=== PATIENT | male | born 1980 | race Caucasian/White ===

== ENCOUNTER 2021-11-02 17:35 | Outpatient (REF) | payer BC, SELFPAY ==
[2021-11-02 20:26] LABS: Hemoglobin A1C 5.8 % (<5.7)
[2021-11-02 20:28] LABS: Calculated LDL 169 mg/dL (<100); Cholesterol 226 mg/dL (<200); HDL Cholesterol 43 mg/dL (40-60); Triglyceride 74 mg/dL (<150)
[2021-11-04 10:05] LABS: HIV-1/2 Ag & Ab Screen Negative (Negative)
[2021-11-04 10:18] LABS: Hepatitis C Ab w Rflx HCV PCR Negative (Negative)
== END 2021-11-02 17:36 | disposition home or self-care (01) ==
LOC: NCHCN 17:35
PROVIDERS: Visit Provider Family Medicine
DX: Z00.00 Encounter for general adult medical examination without abnormal findings (principal); Z11.4 Encounter for screening for human immunodeficiency virus [HIV]; Z13.1 Encounter for screening for diabetes mellitus; Z13.220 Encounter for screening for lipoid disorders; Z11.59 Encounter for screening for other viral diseases
CPT/HCPCS: 80061; 86803; 87389; 83036